=== PATIENT | male | born 1980 | race Caucasian/White ===

== ENCOUNTER 2016-04-27 01:47 | Emergency (ER) | payer OTHER ==
[~2016-04-27] VITALS: Ht 195.6 cm; Wt 116.3 kg
[~2016-04-27 01:47] MED LIST: ATOR40TA64 PO; HYDR-347 PO; MELO7.5T12 PO; METH4TAB3
--- OUTSIDE RECORDS SUMMARY | 2016-04-27 01:55 | XMS REPORT | Continuity of Care Document ---
Author Author Zuleima HUGHES, Anuel Perez [facility] Ambulatory Address [address] [place] [address] Phone Payers Payer name Insurance type Covered republican ID Authorization(s) Unknown Problems Condition Effective Dates (start - stop) Clinical Status Sterilization - *Acute Pure hypercholesterolemia - *Chronic Sterilization - *Acute Family History Family Member Diagnosis Age At Onset Status Unknown Social History Social History Element Description Quantity Unknown Allergies, Adverse Reactions, Alerts Substance Reaction Severity Status Unknown Medications Medication Instructions Dosage Effective Dates (start - stop) Status Unknown Immunizations Vaccine Date Status Comments Unknown Results Test Name Date and Time Measure Units Reference Range Abnormal Flag Comments Unknown Vital Signs Date / Time: Height Weight Pulse Rate Blood Pressure Temperature /16:04:00 75.00 in 273.00 lbs 60 /min 124/80 mm[Hg] Procedures Procedure Date Unknown Encounters Encounter Location Date Patient Visit [facility] Patient Visit [facility] Advance Directives Directive Effective Date Unknown
[2016-04-27 02:10] VITALS: BP 114/74; PULSE 68; RESP 16; TEMP 97.4; O2SAT 99; Ht 195.6 cm; Wt 116.3 kg
--- NOTE | 2016-04-27 02:36 | ERPDOC ---
Departure Disposition Decision Date: Apr 27, 2016 Disposition Decision Time: 02:36 Disposition: 01 DISCHARGED HOME, SELF-CARE Impression Impression Impression: Primary Impression: Sinusitis Severity: Moderate Condition: Stable Seen By: Physician only Referrals: OZZY CHRIS APRN (PCP) Patient Instructions: Sinusitis (ED) Problems/Meds/Labs Reviewed?: Yes Medications reviewed and manag: Yes Additional Instructions: Keflex 500 mg tablet, 2 tabs twice a day for 10 days. Flonase nasal spray one squirt each nostril twice daily. Recommend follow-up with your nose and throat regarding episodes of right-sided nasal drainage and headache. Follow up care ordered?: Yes Mental Status: Alert, Oriented Scripts Fluticasone Propionate (Flonase Allergy Relief 50 mcg/actuation Nasal) 9.9 Ml [place].susp 1 SPRAY IH BID, #1 UNIT Prov: KEVIN ESCOBEDO MD 04/27/16 Cephalexin (Keflex) 500 Mg Capsule 2 CAP PO BID, #40 CAP Prov: KEVIN ESCOBEDO MD 04/27/16 HPI - Headache General Chief Complaint: Headache Stated Complaint: HEADACHES, DIZZINESS,FLUID DISCHARGE FROM NOSE Time Seen by Provider: 02:32 HPI - Headache Initial Comments 35-year-old gentleman with clear rhinorrhea on the right and headache. He notes that may be 15 times in his life he has had sudden drainage of fluid from that side of his nose. This is been over the last 10 years or so. He doesn't get allergies, has never had any significant head trauma. No skull fractures. He's not had any fevers or chills, no dyspnea. He works mostly indoor, or staying in a truck, is not exposed to significant fumes or chemicals. Allergies: Coded Allergies: NKDA (Verified Allergy, Mild, 03/21/15) Past History Past Medical History Metabolic: hypercholesterolemia Hx Echocardiogram: No Surgical History Denies Surgeries Family History Family PMH: FOUND: other Vaccines Hx Influenza Vaccination: Yes (FALL 2012) Hx Pneumococcal Vaccination: Yes (FALL 2012) Social History Smoking Status: Never smoker Sexuality: female partner Record Review Pertinent history updated: Yes Review of Systems ENMT Sinuses: see HPI Nose: see HPI Physical Exam General General Nourishment: well nourished, well developed, appears stated age, no acute distress Vitals and Pain Weight: Kilograms: Height (feet): 6 Height (inches): 4 Triage Pain Scale: Normal Exams: Head: Normocephalic w/o trauma Chest/Resp: Clear all felipe, with good airflow, and symmetry bilaterally CV: Regular rate and rhythm, without murmur or gallop, Pulses 2+ all extremities, capillary refill, <2 seconds all ext., no pedal edema noted Neurologic: Patient is alert, and oriented, cranial nerves, motor/sensory/ cerebellar, exams w/o gross deficits, to observation Psychiatric: Patient exhibits, appropriate attention, emotion and affect ENMT (brief) Comments Nares red and boggy bilateral. No fresh bleeding noted. Differential Diagnoses Considering: Other (sinusitis, allergy, inflammation of nares) Progress Progress Progress Patient has no signs of trauma, no obvious cysts. I do see inflammation, appropriate to infection. He'll be treated with Keflex 500 mg 2 tabs twice a day for 10 days. Start Flonase nasal spray twice a day. Recommend he get referral to ear nose and throat for evaluation. KEVIN ESCOBDEO MD Apr 27, 2016 02:36
[2016-04-27] MEDS ORDERED: CEPH-583 PO (02:43)
[2016-04-27] MEDS ORDERED: FLUT9.9S IH (02:43)
[2016-04-27] MEDS ORDERED: KETOROLAC 60mg/2ml INJECTION IM ONE (02:45)
--- NOTE | 2016-04-27 03:11 | NUR ---
DEPART PT IS DISCHARGED AT THIS TIME, INSTRUCTIONS ARE REVIEWED AND UNDERSTANDING IS VOICED. PT LEAVES AMBULATORY.
[2016-04-27] MEDS ORDERED: NO CURRENT HOME MEDS (05:12)
== END 2016-04-27 03:11 | disposition home or self-care (01) ==
LOC: ED 01:47
DX: J32.9 Chronic sinusitis, unspecified (principal)
CPT/HCPCS: 96372; 99283; J1885